=== PATIENT | female | born 1940 ===

== ENCOUNTER 2023-03-24 15:06 | Inpatient (IN) | payer MEDICARE, SELFPAY ==
[2023-03-24] VITALS (7 sets, daily range): BP systolic 95–100; BP diastolic 53–56; PULSE 77–98; RESP 16–20; TEMP 36.3–36.5; O2SAT 90–93; BMI 28.0
--- NOTE | ~2023-03-24 | XR_ITS ---
EXAMINATION: XR chest 1V portable DATE: 03/27/2023 10:10 INDICATION: Hypoxia. TECHNIQUE: A single frontal view of the chest was obtained. COMPARISON: None. FINDINGS: The patient is rotated to her left. There are airspace opacities in the lower lung zones, l eft worse than right. A calcified left lung nodule is consistent with old granulomatous disease. No p leural effusion or pneumothorax. The heart size is normal. IMPRESSION: 1. Airspace opacities in the lower lung zones, left worse than right, consistent with atelectasis fabienne jaime pneumonia. Reviewed, dictated and finalized at location A. IMPRESSION: 1. Airspace opacities in the lower lung zones, left worse than right, consisten t with atelectasis versus pneumonia.
--- NOTE | ~2023-03-24 | US_ITS ---
EXAMINATION: US renal BI DATE: 03/27/2023 11:22 INDICATION: Acute kidney injury. TECHNIQUE: Multiple ultrasound grayscale images of the kidneys were obtained. COMPARISON: None. FINDINGS: The right kidney measures 10.1 x 4.9 x 5.0 cm. The left kidney measures 10.7 x 5.1 x 4.4 cm. The kidn eys demonstrate normal parenchymal echogenicity. There is mild right hydronephrosis. The bladder is d istended. IMPRESSION: 1. Mild right hydronephrosis. 2. Distended bladder. Reviewed, dictated and finalized at location A.
--- NOTE | ~2023-03-24 | US_ITS ---
Procedure: Duplex Doppler examination of the bilateral carotids. Indication: Neurologic symptoms, left lower extremity weakness Technique: Real time, color-flow and pulse wave Doppler examination of the bilateral carotids was performed. Findings: Soni scale ultrasonography of the right neck demonstrated small plaque at the proximal right internal carotid artery. There was demonstration of normal color-flow and Doppler waveforms within the right common, internal and external carotid arteries. The peak systolic velocities in the right common, int ernal and external carotid arteries were demonstrated to be 94 cm/sec, 100 cm/sec and 127 cm/sec resp ectively. The right ICA/CCA ratio was 1.1.The proximal right internal carotid artery demonstrates 0% stenosis relative to the normal distal artery lumen diameter. Soni scale sonography of the left neck demonstrated small to moderate plaques at the proximal left co mmon carotid artery.. There was demonstration of normal color-flow and wave forms within the left com mon, internal and external carotid arteries. The peak systolic velocities in the left common, interna l and external carotid arteries were demonstrated to be 126cm/sec, 93 cm/sec and 145 cm/sec respectiv anusha. The left ICA/CCA ratio was 0.9. The proximal left internal carotid artery demonstrates 0% stenos is relative to the normal distal artery lumen diameter. There was antegrade flow demonstrated in the bilateral vertebral arteries. Impression: No hemodynamically significant stenosis of the bilateral internal carotid arteries. Antegrade flow in the bilateral vertebral arteries. Note: The methodology used is an indirect measurement validated against a direct method (such as the NASCET criteria) that compares diameters at the stenosis to the distal ICA. Reviewed, dictated and finalized at location . Impression: No hemodynamically significant stenosis of the bilateral internal carotid arter ies. Antegrade flow in the bilateral vertebral arteries. Note: The methodology used is an indirect measurement validated against a direct meth od (such as the NASCET criteria) that compares diameters at the stenosis to the distal ICA.
--- NOTE | 2023-03-24 15:05 | PM.IMHP ---
H&P: HPI History of Present Illness Date/Time: 03/24/23 15:00 Chief Complaint: Non ST-elevation myocardial infarction. Narrative: This is a very pleasant 82-year-old female with hypertension, COPD, and GERD who is being directly admitted to the IMU from the emergency department at [facility] in [place] for further treatment and evaluation after she was found to have evidence of a non ST-elevation myocardial infarction. She presented to their facility last evening with a chief complaint of left lower extremity weakness. She was walking around the house when suddenly her left leg ?felt like it was going to collapse? so she walked over to the couch to sit down. She was unable to lift that leg up onto the couch and after speaking with her son she decided to call EMS as she was concerned for stroke. EMS had to assist her to the cot and they had to lift up her left leg as she was unable to do so. By the time she got to the emergency department her symptoms have resolved and her NIH stroke scale was 0. Brain CT done at that time showed no acute findings. Multiple labs were obtained including CBC, BMP, and troponins. Incidentally her troponin level came back moderately elevated and with further questioning she did mention that she had a mild aching discomfort in the left anterior chest yesterday however that was very brief. The discomfort did not radiate and she had no associated symptoms. Transfer was initiated to [place] today as she was still waiting on a bed at [facility]. At the outside facility she was started on heparin drip for presumed non STEMI and she was also given 1 dose of antibiotics for possible urinary tract infection (urine was nitrate negative but showed 1+ leukocyte esterase). At the time my evaluation she feels a bit more short of breath than baseline but she believes that is due to the fact that she was not given her inhalers while at the outside facility. She has a chronic cough which is unchanged. She has not had any other neurologic symptoms and her left leg is back to normal. She has not had any recurrent chest discomfort. She also denies fever, chills, sweats, cold and flu symptoms, pleuritic pain, palpitations, nausea, vomiting, diarrhea, dysuria, and any other urinary symptoms. Review of Systems Review of Systems: Twelve systems were reviewed and are negative except for as per HPI. [facility] Past Medical History Medical History (Updated 03/24/23 @ 23:28 by Larissa Vargas PA-C) Chronic obstructive pulmonary disease Fracture of greater trochanter of left femur (11/2019) Gastroesophageal reflux disease Hypertension Macular degeneration Surgical History Surgical History (Updated 03/24/23 @ 23:21 by Larissa Vargas PA-C) History of eye surgery For retinal detachment. History of tubal ligation History of uterine suspension procedure Family History Family History Father Myocardial infarction Sibling Myocardial infarction Mother Diabetes mellitus Cerebrovascular accident Sibling Diabetes mellitus Grandparent Cancer Social History Social History (Updated 03/24/23 @ 23:22 by Larissa Vargas PA-C) Social History: Surrogate medical decision maker: Blu Kellogg, son. Code status: Full code. Smoking packs per day: 1 Smoking cigarettes per day: 20.0 Years smoked: 20 Smoking pack-years: 20.00 Smoking status: Former smoker Smoking end date: 10/21/17 Alcohol intake: never Substance use: never Lack of Transportation: No Lack of Food: Never True Current Housing: I Have Housing Concerned About Future Housing: No Difficulty Paying Gas/Electric Bills: No Difficulty Paying for Meds: No Currently Unemployed: No Education: Don't Know Difficulty w/ Childcare or Family Care: No Additional living arrangements comments: . She lives in [place]. Her son Conner lives with her. Spiritual ca
--- NOTE | 2023-03-24 15:07 | ECG_ITS ---
Measurements Intervals [place] Rate: 88 P: 65 WV: 170 QRS: -24 QRSD: 76 T: 26 QT: 302 QTc: 367 Interpretive Statements SINUS RHYTHM BORDERLINE LEFT AXIS DEVIATION [QRS AXIS < -20] NONSPECIFIC T-WAVE ABNORMALITY CAN NOT RULE OUT INFERIOR INFARCTION ABNORMAL ECG Electronically Signed On 03-25-2023 10:17:51 CDT by Gildardo Adler M.D.
--- NOTE | 2023-03-24 15:14 | PM.CNCAR ---
Assessment and Plan Assessment and plan (1) SOB (shortness of breath) on exertion: Code(s): R06.02 - Shortness of breath Status: Acute Assessment and Plan: With wheezes, this could be COPD exac or ACS. Obtain troponin, EKG. Obtain echo in AM. Obtain Lipid panel; she states she got sick from cholesterol medication and it was discontinued in past. Keep NPO in case needs to have left heart cath. On heparin drip, aspirin 81 mg daily. (2) Elevated troponin: Code(s): R77.8 - Other specified abnormalities of plasma proteins Status: Acute Assessment and Plan: At [facility] on their scale, Troponin over 4,000, then over 3,000, then over 2,000, trending down but elevated. (3) Chronic obstructive pulmonary disease: Code(s): J44.9 - Chronic obstructive pulmonary disease, unspecified Status: Acute Assessment and Plan: Inhalers as per hospitalist. (4) Hypertension: Code(s): I10 - Essential (primary) hypertension Status: Acute Assessment and Plan: On Lisinopril. Monitor. History of Present Illness History of Present Illness Consult date/time: 03/24/23 15:14 Reason For Visit: NSTEMI Narrative: 82 yr old woman transferred from [facility] in [place] after found to have NSTEMI. She has a history of hypertension, COPD, GERD, smoking history. Reports that yesterday she had generalized weakness and especially left leg weakness. Her son helped her get into bed. Due to weakness they called ambulance and was brought to [facility]. It was there that she complained of sob. Normally she can walk with her cane around her house without any problems. She had a history of left leg fracture that healed without surgery. Denies chest pain, orthopnea, PND, edema, dizziness, palpitations. At [place] her troponin was found to be elevated but trending down on their scale over 4,000, then over 3,000 then over 2,000. CT chest showed pulm nodule. EKG without acute ST changes. She was started on Heparin drip. Review of Systems Review of Systems: All systems reviewed & are unremarkable except as noted in HPI and below Cardiovascular: Cardiovascular: Reports as per HPI, Denies chest pain, Denies irregular heart rhythm, Denies leg edema and Denies lightheadedness Respiratory: Respiratory: Reports dyspnea and Reports wheezing Gastrointestinal: Gastrointestinal: Reports as per HPI and Denies abdominal pain Genitourinary: Genitourinary: Reports as per HPI and Denies dysuria Musculoskeletal: Musculoskeletal: Reports as per HPI and Reports muscle weakness Neurologic: Reports as per HPI, Denies dizziness and Denies syncope [facility] Past Medical History Medical History (Updated 03/24/23 @ 15:21 by Isael Bhakta DO) Chronic obstructive pulmonary disease Fracture of greater trochanter of left femur (11/2019) Gastroesophageal reflux disease Hypertension Family History Family History Other Diabetes mellitus Social History Social History (Updated 03/24/23 @ 15:12 by Larissa Vargas PA-C) Social History: Surrogate medical decision maker: Blu Kellogg, son. Code status: Full code. Smoking status: Former smoker Smoking end date: 10/21/17 Alcohol intake: never Meds Home Medications and Allergies Home Medications Medication Instructions Recorded Confirmed Type acetaminophen 500 mg tablet 500 - 1,000 mg PO Q6H PRN Pain 03/24/23 03/24/23 History chlorthalidone 25 mg tablet 25 mg PO HS 03/24/23 03/24/23 History fluticasone 250 mcg-salmeterol 50 1 inh inhalation Q12H 03/24/23 03/24/23 History mcg/dose blistr powdr for inhalation (Wixela Inhub) lisinopril 40 mg tablet 40 mg PO HS 03/24/23 03/24/23 History loratadine 10 mg tablet 10 mg PO HS 03/24/23 03/24/23 History omeprazole 40 mg capsule,delayed 40 mg PO HS 03/24/23 03/24/23 History release Allergies
--- NOTE | 2023-03-24 15:36 | ADMGEN ---
This patient, Lily Kellogg, was admitted to IMU Room 203-01 on 03/24/23 at 1437. Patient/family oriented to hospital policies and general routines including ID bracelet, bed and alarms, visiting hours, pain management, procedures, bathroom and other care routines, personal items, smoking policy, room service/diet, and visiting hours. Information on how to activate the Rapid Response Team has been discussed. Patient/Family are encouraged to report perceived risks to care and to ask questions if they do not understand what they are told or what they should do.
[2023-03-24 17:15] LABS: Basophils Absolute Auto 0.1 K/mm3 (0.0-0.1); Basophils Percent Auto 0.5 % (0.2-1.2); Eosinophils Absolute Auto 0.1 K/mm3 (0-0.3); Eosinophils Percent Auto 0.5 % (0-4.4); Hematocrit 36.8 % (37.0-47.0); Hemoglobin 11.8 g/dL (12.0-15.0); Immature Granulocyte Absolute 0.03 K/mm3 (0.00-0.031); Immature Granulocyte Percent A 0.3 % (0-0.5); Lymphocytes Absolute Auto 2.22 K/mm3 (0.9-3.2); Lymphocytes Percent Auto 22.7 % (18.3-44.2); Mean Corpuscular HGB Conc 32.1 g/dl (32-36); Mean Corpuscular Hemoglobin 28.4 pg (26-34); Mean Corpuscular Volume 88.5 fl (80-100); Mean Platelet Volume 9.1 fl (7.4-10.4); Monocytes Absolute Auto 0.8 K/mm3 (0.1-0.6); Monocytes Percent Auto 8.6 % (2.6-8.5); Neutrophils Absolute Auto 6.6 K/mm3 (1.3-6.7); Neutrophils Percent Auto 67.4 % (45.5-73.1); Platelet Count Result 329 k/mm3 (150-375); Red Blood Count 4.16 M/mm3 (4.2-5.4); Red Cell Distribution Width 13.5 % (11.5-14.5); White Blood Count 9.8 K/mm3 (4.5-10.0)
[2023-03-24 17:25] LABS: Prothrombin Time 13.3 Seconds (11.1-14.7)
[2023-03-24 17:26] LABS: Partial Thromboplastin Time 49.2 SECONDS (22.3-36.8)
[2023-03-24] MEDS: HEPARIN SOD/D5W 100 UNITS/ML 25,000 UNITS/250 ML BAG 11 UNITS IV CONT (17:35)
[2023-03-24] MEDS: HEPARIN SODIUM 5,000 UNITS/ML VIAL 4000 UNITS IV PUSH (17:37)
[2023-03-24] MEDS: LACTATED RINGERS 1,000 ML 100 ML IV CONT (17:38)
[2023-03-24] MEDS: LORATADINE 10 MG TABLET PO (22:40)
[2023-03-25] VITALS (35 sets, daily range): BP systolic 95–125; BP diastolic 46–92; PULSE 69–117; RESP 14–22; TEMP 36.2–36.4; O2SAT 91–98
[2023-03-25 00:06] LABS: Partial Thromboplastin Time 157.3 SECONDS (22.3-36.8)
[2023-03-25] MEDS: methylPREDNISolone SOD SUCC 125 MG VIAL 80 MG IV PUSH (00:29)
--- NOTE | 2023-03-25 00:43 | ECHO_ITS ---
Patient Info Name: Lily Kellogg Age: 82 years : 1940 Gender: Female Ht: 65 in Wt: 203 lbs BSA: 2.09 m2 HR: 69 bpm BP: 105 / 52 mmHg Heart Rhythm: Sinus Rhythm Technical Quality: Fair Exam Date: 03/25/2023 10:48 AM Exam Location: [facility] Pulmonary Patient Status: Inpatient Admit Date: 03/24/2023 Staff Ordering Physician: Larissa Vargas PA-C Hem Marker: Barbara Rivas RDCS Attending Provider: Demetrio Payton MD Referring Physician: Alicia GONZALEZ; Exam Type: CA echo doppler w bubble study Study Info Indications - NSTEMI, COPD, Cllubbing of finger Complete two-dimentional, color flow and Doppler transthoracic echocardiogram is performed with agitated saline and with contrast to opacify the left ventricle and to improve the delineation of the left ventricle endocardial borders. Contrast/Agitated Saline Contrast/Ag. Saline: Agitated Saline Amount: 20.00 ml Administered By: Imani Enriquez RDCS Existing IV Access: Yes IV Access Condition: patent with no signs of infiltration Contrast/Ag. Saline: Definity Amount: 3.00 ml Administered By: Barbara Rivas RDCS Existing IV Access: Yes IV Access Condition: patent with no signs of infiltration Summary 1. Left ventricular chamber dimension is moderately enlarged. 2. Definity contrast administered improved wall motion interpretation. 3. Left ventricular systolic function is severely reduced, estimated at 20-25%. 4. Basal LV segments have normal contractility while mid to apical segments are severely hypokinetic, suggestive of Takotsubo cardiomyopathy. 5. The left ventricular diastolic function is abnormal. 6. E/e' 36 is significantly elevated. 7. There is mild aortic valve regurgitation. 8. There is mild tricuspid valve regurgitation. 9. No pulmonary hypertension, estimated pulmonary arterial systolic pressure is 39 mmHg. Left Ventricle Basal LV segments have normal contractility while mid to apical segments are severely hypokinetic, suggestive of Takotsubo cardiomyopathy. Definity contrast administered improved wall motion interpretation. E/e' 36 is significantly elevated. Left ventricular chamber dimension is moderately enlarged. Left ventricular systolic function is severely reduced, estimated at 20-25%. The left ventricular diastolic function is abnormal. Right Ventricle Right ventricular chamber dimension is normal. Right ventricular systolic function is normal. Left Atria Left atrial chamber dimension is normal. Right Atria Right atrial chamber dimension is normal. Aortic Valve The aortic valve is trileaflet. There is no aortic valve stenosis. There is mild aortic valve regurgitation. Pulmonic Valve There is no pulmonic regurgitation. Mitral Valve There is no mitral valve stenosis. There is no mitral valve regurgitation. Tricuspid Valve There is mild tricuspid valve regurgitation. No pulmonary hypertension, estimated pulmonary arterial systolic pressure is 39 mmHg. Pericardium/Pleural There is no pericardial effusion. Inferior Vena Cava Normal inferior vena cava with >50% collapse upon inspiration consistent with normal right atrial pressure, 5 mmHg. Aorta The aortic root size at the sinus of Valsalva is normal. Left Ventricular Outflow Tract Name Value Normal LVOT 2D ------
[2023-03-25] MEDS: ALBUTEROL SULFATE NEB 2.5 MG/3 ML INH INHALATION ×4 (02:30→20:45)
[2023-03-25] MEDS: IPRATROPIUM BR 0.02% INH SOLN 0.5 MG/2.5 ML VIAL INHALATION ×4 (02:31→20:45)
[2023-03-25 07:43] LABS: Basophils Percent Auto 0.3 % (0.2-1.2); Hematocrit 34.7 % (37.0-47.0); Hemoglobin 11.1 g/dL (12.0-15.0); Immature Granulocyte Absolute 0.04 K/mm3 (0.00-0.031); Immature Granulocyte Percent A 0.5 % (0-0.5); Lymphocytes Absolute Auto 0.92 K/mm3 (0.9-3.2); Lymphocytes Percent Auto 11.6 % (18.3-44.2); Mean Corpuscular Hemoglobin 28.5 pg (26-34); Mean Platelet Volume 9.3 fl (7.4-10.4); Monocytes Absolute Auto 0.1 K/mm3 (0.1-0.6); Monocytes Percent Auto 1.1 % (2.6-8.5); Neutrophils Absolute Auto 6.8 K/mm3 (1.3-6.7); Neutrophils Percent Auto 86.5 % (45.5-73.1); Platelet Count Result 295 k/mm3 (150-375); Red Cell Distribution Width 13.7 % (11.5-14.5); White Blood Count 7.9 K/mm3 (4.5-10.0)
[2023-03-25 07:54] LABS: Partial Thromboplastin Time 79.8 SECONDS (22.3-36.8)
--- NOTE | 2023-03-25 07:55 | PM.PNCARD ---
Progress Note: A&P Assessment and Plan (1) SOB (shortness of breath) on exertion: Code(s): R06.02 - Shortness of breath Status: Acute Assessment and Plan: With wheezes, this could be COPD exac or ACS. Obtain echo. Obtain Lipid panel; she states she got sick from cholesterol medication and it was discontinued in past. Keep NPO for left heart cath. On heparin drip, aspirin 81 mg daily. Consult [facility] for LHC. (2) Elevated troponin: Code(s): R77.8 - Other specified abnormalities of plasma proteins Status: Acute Assessment and Plan: At [facility] on their scale, Troponin over 4,000, then over 3,000, then over 2,000, trending down but elevated. Here is peaked at 2.9. Obtain CMP, CBC. (3) Chronic obstructive pulmonary disease: Code(s): J44.9 - Chronic obstructive pulmonary disease, unspecified Status: Acute Assessment and Plan: Inhalers as per hospitalist. (4) Hypertension: Code(s): I10 - Essential (primary) hypertension Status: Acute Assessment and Plan: On Lisinopril. Monitor. Subjective Date/time seen: 03/25/23 07:55 Interval history: Reports sob and some wheezes. No chest pain. Exam Const: General: cooperative, healthy appearing and comfortable Orientation/consciousness: oriented to person, oriented to place and oriented to time Resp: Auscultation: no crackles, no rales, no rhonchi and wheezes expiratory wheezes and throughout Cardio: Rate: regular rate Rhythm: regular rhythm Heart sounds: no murmurs Peripheral pulses: dorsalis pedis present Neuro: General: oriented to person, oriented to place and oriented to time Extrem: Right lower extremity: no edema Left lower extremity: no edema Objective Data Vital Signs Vital Signs: Vital Signs - 24 hr 03/24/23 14:40 03/24/23 16:00 03/24/23 14:40 Temperature 97.3 F L Pulse Rate 83 Respiratory Rate 20 Blood Pressure 95/53 L Pulse Oximetry 93 Oxygen Delivery Room Air Room Air Oxygen Flow Rate 03/24/23 16:00 03/24/23 14:53 03/24/23 18:00 Temperature Pulse Rate 98 87 83 Respiratory Rate Blood Pressure Pulse Oximetry Oxygen Delivery Oxygen Flow Rate 03/24/23 19:38 03/24/23 20:00 06/04/23 20:00 Temperature 97.7 F Pulse Rate 82 86 Respiratory Rate 16 Blood Pressure 100/56 L Pulse Oximetry 92 90 Oxygen Delivery Nasal Cannula Oxygen Flow Rate 1 03/24/23 22:00 03/25/23 00:00 03/25/23 00:00 Temperature 97.5 F L Pulse Rate 77 91 Respiratory Rate 18 Blood Pressure 121/81 Pulse Oximetry 95 91 Oxygen Delivery Room Air Oxygen Flow Rate 03/25/23 00:00 03/25/23 02:00 03/25/23 02:31 Temperature Pulse Rate 79 72 77 Respiratory Rate 20 Blood Pressure Pulse Oximetry Oxygen Delivery Oxygen Flow Rate 03/25/23 02:43 03/25/23 03:05 03/25/23 04:00 Temperature Pulse Rate 79 71 Respiratory Rate 20 Blood Pressure Pulse Oximetry 97 Oxygen Delivery Nasal Cannula Oxygen Flow Rate 2 03/25/23 04:00 03/25/23 06:00 Temperature 97.3 F L Pulse Rate 95 69 Respiratory Rate 18 Blood Pressure 105/52 L Pulse Oximetry 98 Oxygen Delivery Oxygen Flow Rate Intake/Output Intake/Output: Intake & Output 03/22/23 03/23/23 03/24/23 03/25/23 23:59 23:59 23:59 23:59 Intake Total 660 950 Output Total 1210 800 Balance -550 150 Meds/Results Medications: Active Medications Generic Name Dose Route Start Last Admin Trade Name Freq PRN Reason Stop Dose Admin Acetaminophen 650 mg 03/24/23 15:06 Acetaminophen 325 Mg Tablet PO Q4H PRN Mild Pain (1-3) or Fever Albuterol 2.5 mg 03/24/23 21:33 Albuterol Sulfate Neb 2.5 Mg/3 Ml Inh INHALATION Q6H PRN Wheezing Albuterol 2.5 mg 03/25/23 02:00 03/25/23 02:30 Albuterol Sulfate Neb 2.5 Mg/3 Ml Inh INHALATION 2.5 mg Q6HRT NALINI Administration Aspirin 81 mg 03/25/23
[2023-03-25] MEDS: FLUTICASONE/SALMETEROL 115-21 MCG INHALER 1 PUFF 2 PUFF INHALATION ×2 (08:00→20:45)
[2023-03-25 08:04] LABS: Alanine Aminotransferase 21 U/L (6-35); Albumin Level 4.2 g/dL (3.5-5.1); Alkaline Phosphatase 94 U/L (38-126); Anion Gap 7 mmol/L (8-16); Aspartate Amino Transferase 41 U/L (14-36); Bilirubin,Total 0.4 mg/dL (0.2-1.3); Blood Urea Nitrogen 17 mg/dL (7-17); Calcium 8.5 mg/dL (8.4-10.2); Carbon Dioxide 25 mmol/L (22-30); Chloride 102 mmol/L (98-107); Cholesterol 243 mg/dL (0-200); Estimated CRCL calculation 41 ml/min; Estimated Glomerular Filt Rate 53; Glucose 168 mg/dL (65-110); HDL Direct 57 mg/dL; Magnesium 1.8 mg/dL (1.6-2.3); Potassium 4.5 mmol/L (3.4-5.0); Sodium 134 mmol/L (137-145); Triglycerides 232 mg/dL (<150)
[2023-03-25 08:14] LABS: LDL Cholesterol Direct 119 mg/dL
--- NOTE | 2023-03-25 08:24 | PM.IMPN ---
Progress Note: A&P Assessment and Plan (1) Non-ST elevation myocardial infarction (NSTEMI): Code(s): I21.4 - Non-ST elevation (NSTEMI) myocardial infarction Status: Acute Assessment and Plan: Continue heparin drip, appreciate cardiology consultation (2) COPD exacerbation: Code(s): J44.1 - Chronic obstructive pulmonary disease with (acute) exacerbation Status: Acute Assessment and Plan: Solumedrol x 1, then prednisone 40 mg daily initiated 03/25 for 5 days total of steroids planned, cont nebs (3) Hypertension: Code(s): I10 - Essential (primary) hypertension Status: Acute Assessment and Plan: Blood pressures reviewed 03/25 (4) Left leg weakness: Code(s): R29.898 - Other symptoms and signs involving the musculoskeletal system Status: Acute (5) Right upper lobe pulmonary nodule: Code(s): R91.1 - Solitary pulmonary nodule Status: Acute Assessment and Plan: Follow up outpatient Plan DVT prophylaxis with SCDs GI prophylaxis not indicated Code status full code Subjective Date/time seen: 03/25/23 08:24 Interval history: 82-year-old female with history of hypertension, COPD, GERD is presenting with lower extremity weakness and currently being treated for an NSTEMI. No overnight events noted. No chest pain or shortness of breath. No nausea, vomiting or diarrhea. No fevers or chills. Review of Systems Review of Systems: 12 point review of systems was assessed and was negative except as noted in the HPI Exam Narrative: General: No acute distress, alert and oriented per baseline HEENT: Atraumatic, normocephalic, mucous membranes moist CV: Regular rate and rhythm, S1, S2 Lungs: Clear to auscultation bilaterally, no rales or crackles noted, no wheezes, good air entry Abdomen: Soft, nontender, nondistended Extremities: Normal to inspection Skin: No rashes noted, no lesions or wounds seen Psych: Euthymic, normal affect Objective Data Vital Signs Vital Signs: Vital Signs - 24 hr 03/24/23 14:40 03/24/23 16:00 03/24/23 14:40 Temperature 97.3 F L Pulse Rate 83 Respiratory Rate 20 Blood Pressure 95/53 L Pulse Oximetry 93 Oxygen Delivery Room Air Room Air Oxygen Flow Rate 03/24/23 16:00 03/24/23 14:53 03/24/23 18:00 Temperature Pulse Rate 98 87 83 Respiratory Rate Blood Pressure Pulse Oximetry Oxygen Delivery Oxygen Flow Rate 03/24/23 19:38 03/24/23 20:00 03/24/23 20:00 Temperature 97.7 F Pulse Rate 82 86 Respiratory Rate 16 Blood Pressure 100/56 L Pulse Oximetry 92 90 Oxygen Delivery Nasal Cannula Oxygen Flow Rate 1 03/24/23 22:00 03/25/23 00:00 03/25/23 00:00 Temperature 97.5 F L Pulse Rate 77 91 Respiratory Rate 18 Blood Pressure 121/81 Pulse Oximetry 95 91 Oxygen Delivery Room Air Oxygen Flow Rate 03/25/23 00:00 03/25/23 02:00 03/25/23 02:31 Temperature Pulse Rate 79 72 77 Respiratory Rate 20 Blood Pressure Pulse Oximetry Oxygen Delivery Oxygen Flow Rate 03/25/23 02:43 03/25/23 03:05 03/25/23 04:00 Temperature Pulse Rate 79 71 Respiratory Rate 20 Blood Pressure Pulse Oximetry 97 Oxygen Delivery Nasal Cannula Oxygen Flow Rate 2 03/25/23 04:00 03/25/23 06:00 03/25/23 08:01 Temperature 97.3 F L Pulse Rate 95 69 Respiratory Rate 18 Blood Pressure 105/52 L Pulse Oximetry 98 94 Oxygen Delivery Room Air Oxygen Flow Rate 03/25/23 08:01 Temperature Pulse Rate 80 Respiratory Rate 20 Blood Pressure Pulse Oximetry Oxygen Delivery Oxygen Flow Rate Intake/Output Intake/Output: Intake & Output 03/22/23 03/23/23 03/24/23 03/25/23 23:59 23:59 23:59 23:59 Intake Total 660 950 Output Total 1210 800 Balance -550 150 Meds/Results Medications: Active Medications Generic Name Dose Route Start Last Admin
[2023-03-25] MEDS: predniSONE 20 MG TABLET 40 MG PO (08:39)
[2023-03-25] MEDS: PANTOPRAZOLE 40 MG TABLET PO ×2 (08:40→17:52)
[2023-03-25] MEDS: ASPIRIN 81 MG ENTERIC TABLET PO (08:40)
--- NOTE | 2023-03-25 09:11 | WPDMODSED ---
Moderate Sedation Note-Pt Data Patient Data Diagnosis: Elevated troponin Present Complaint: generalized weakness Procedure to be performed/Plan: left heart catheterization Allergies Allergy/AdvReac Type Severity Reaction Status Date / Time atorvastatin Allergy Unknown Unknown Verified 03/24/23 15:29 codeine Allergy Unknown unknown Verified 11/30/19 13:12 amlodipine AdvReac Unknown Nausea and Verified 03/24/23 16:49 Vomiting,lightheaded Home Medications Medication Instructions Recorded Confirmed Type acetaminophen 500 mg tablet 500 - 1,000 mg PO Q6H PRN Pain 03/24/23 03/24/23 History albuterol sulfate 2.5 mg/3 mL 2.5 mg inhalation Q6H PRN Wheezing 03/24/23 03/24/23 History (0.083 %) solution for nebulization chlorthalidone 25 mg tablet 25 mg PO HS 03/24/23 03/24/23 History fluticasone 250 mcg-salmeterol 50 1 inh inhalation Q12H 03/24/23 03/24/23 History mcg/dose blistr powdr for inhalation (Wixela Inhub) lisinopril 40 mg tablet 40 mg PO HS 03/24/23 03/24/23 History loratadine 10 mg tablet 10 mg PO HS 03/24/23 03/24/23 History omeprazole 40 mg capsule,delayed 40 mg PO HS 03/24/23 03/24/23 History release Current Medications: Active Medications Acetaminophen (Acetaminophen 325 Mg Tablet) 650 mg PO Q4H PRN PRN Reason: Mild Pain (1-3) or Fever Albuterol (Albuterol Sulfate Neb 2.5 Mg/3 Ml Inh) 2.5 mg INHALATION Q6H PRN PRN Reason: Wheezing Albuterol (Albuterol Sulfate Neb 2.5 Mg/3 Ml Inh) 2.5 mg INHALATION Q6HRT [facility] Last Admin: 03/25/23 08:00 Dose: 2.5 mg Aspirin (Aspirin 81 Mg Enteric Tablet) 81 mg PO QAM [facility] Last Admin: 03/25/23 08:40 Dose: 81 mg Heparin Sodium (Porcine) (Heparin Sodium 5,000 Units/Ml Vial) 2,500 units IV PUSH PRN PRN PRN Reason: aPTT 55 - 70 seconds Heparin Sodium (Porcine) (Heparin Sodium 5,000 Units/Ml Vial) 4,000 units IV PUSH PRN PRN PRN Reason: aPTT less than 55 seconds Last Admin: 03/24/23 17:37 Dose: 4,000 units Heparin Sodium/Dextrose (Heparin Sodium/D5w 100 Units/Ml) 25,000 units in 250 mls @ 9 mls/hr IV CONT .Q24H [facility]; Protocol Last Titration: 03/25/23 08:13 Dose: 900 units/hr, 9 mls/hr Lactated Ringer's (Lr - Lactated Ringers Iv) 1,000 mls @ 100 mls/hr IV CONT .Q10H ONE Stop: 03/25/23 09:30 Last Admin: 03/25/23 02:57 Dose: Not Given Ipratropium Fischer (Ipratropium Br 0.02% Inh Soln 0.5 Mg/2.5 Ml Vial) 0.5 mg INHALATION Q6HRT [facility] Last Admin: 03/25/23 08:00 Dose: 0.5 mg Loratadine (Loratadine 10 Mg Tablet) 10 mg PO HS [facility] Last Admin: 03/24/23 22:40 Dose: 10 mg Pantoprazole Sodium (Pantoprazole 40 Mg Tablet) 40 mg PO BID [facility] Last Admin: 03/25/23 08:40 Dose: 40 mg Perflutren Lipid Microsphere (Perflutren Lipid Microspheres 1.5 Ml Vial Diluted To 10 Ml Total Volume) 0 ml IV PUSH ONCE PRN; Protocol PRN Reason: adequate visualization Stop: 03/26/23 15:08 Perflutren Lipid Microsphere (Perflutren Lipid Microspheres 1.5 Ml Vial Diluted To 10 Ml Total Volume) 0 ml IV PUSH ONCE PRN; Protocol PRN Reason: adequate visualization Stop: 03/27/23 00:43 Prednisone (Prednisone 20 Mg Tablet) 40 mg PO DAILY@0800 [facility] Stop: 03/29/23 07:59 Last Admin: 03/25/23 08:39 Dose: 40 mg Fluticasone/Salmeterol (Fluticasone/Salmeterol 115-21 Mcg Inhaler 1 Puff) 2 puff INHALATION Q12HRT [facility] Last Admin: 03/25/23 08:00 Dose: 2 puff Sedation/Anesthesia: No previous sedation/anesthesia problems (including family history). [facility] Past Medical History Medical History (Updated 03/24/23 @ 23:28 by Larissa Vargas PA-C) Chronic obstructive pulmonary disease Fracture of greater trochanter of left femur (11/2019) Gastroesophageal reflux disease Hypertension Macular degeneration Surgical History Surgical History (Updated 03/24/23 @ 23:21 by Larissa Vargas PA-C) History of eye surgery For retinal detachment. History of tubal ligation History of uterine suspension procedure Family History Family History (Reviewed
[2023-03-25] MEDS: PERFLUTREN LIPID MICROSPHERES 1.5 ML VIAL DILUTED TO 10 ML TOTAL VOLUME IV PUSH (11:15)
[2023-03-25 14:21] LABS: Partial Thromboplastin Time 68.2 SECONDS (22.3-36.8)
[2023-03-25 15:15] LABS: Activated Clotting Time 101 SEC (74-137)
--- NOTE | 2023-03-25 15:16 | WPDCARDPROC ---
Cardiac Cath Procedure Note Date of procedure:: 03/25/23 Performing physician:: Demetrio Hebert MD Indication:: acute coronary syndrome Brief clinical history:: this is an 82-year-old woman who entered the hospital over the weekend with an episode of weakness. She is not reporting any sort of chest pain. She did have a moderate troponin rise. Echocardiogram has been done demonstrating findings compatible with or suggestive of takotsubo cardiomyopathy. Procedure Procedure performed:: Coronary angiography left ventriculography Sedation/Medication given:: Versed 2 mill case start time 2:48 p.m. case end time 3:08 p.m. sedation provided by Farida Sosa RN, trained observer Access site:: right femoral artery Estimated blood loss:: 20 cc Procedure note:: patient was brought to the cardiac catheterization lab in the postabsorptive state where the right femoral triangle was prepared and draped in the usual fashion. Anesthesia was provided with 1% lidocaine infiltrated locally. Using the modified Seldinger technique a 5 Iranian sheath was placed into the right femoral artery after this left heart catheterization took place. I used a 5 Iranian FL4 catheter to engage inject the left coronary artery in multiple projections following this a 5 Iranian JR4 catheter was used to engage and inject the right coronary artery. The left ventricle was then studied using a 5 Iranian angled pigtail catheter measuring hemodynamics and injecting left ventriculography in the 30 degree RYAN projection. Following this the case was terminated the patient was taken to the holding area for manual sheath removal. Procedure was uncomplicated she left the laboratory cureman with no evidence of groin hematoma. ACT was checked at the conclusion of the case and was 101 Findings:: hemodynamics: Central aortic pressure is 22 56 left ventricle 122/10 end-diastolic pressure 36. No gradient across the aortic valve upon pullback. Left ventricle: The LV is mildly enlarged the entire apical 1/3 of the LV is akinetic with apical dyskinesis. There is no evidence of clot. Global ejection fraction appears to be about 25-30%. The left main coronary artery is moderately calcified but is nicely patent the LAD is heavily calcified proximally of moderate caliber extends down to and around the apex. The proximal LAD has a high-grade 95-99% stenosis which also involves 95-99% stenosis of the origin of the moderate-sized 1st diagonal branch. There was PJ 3 flow in the LAD and in the diagonal. The bifurcation area has bulky nodular calcification seen in the lumen of the LAD itself. The circumflex is a moderate caliber artery which is mildly calcified the circumflex is marginal branches are free of significant disease. Right coronary artery is large in caliber and dominant to the posterior circulation the RCA has mild atherosclerosis proximally 20-30% stenosis in the 2nd portion where it is rather large and caliber. No flow-limiting disease appears to be identified Conclusion:: 1. severe single-vessel coronary disease with high-grade stenosis of the proximal LAD also involving high-grade stenosis of the 1st diagonal branch in region of the LAD and diagonal which are heavily calcified as well. 2. No significant circumflex or right coronary lesion 3. large area of left ventricular akinesia similar to what was described on her echocardiogram. As the patient does have very high-grade proximal LAD disease 1 must presume this is ischemically mediated rather than an example of takotsubo. 4. Will discuss with referring safety teacher revascularization strategy as this proximal heavily calcified LAD bifurcation lesion would likely require interventional equipment such as shockwave, atherectomy or possibly laser which are not available in our laboratory Demetrio Hebert MD [facility]
[2023-03-25] MEDS: SODIUM CHLORIDE 0.9% IV 1,000 ML 125 ML IV CONT (17:50)
[2023-03-25] MEDS: FUROSEMIDE 20 MG TABLET PO (17:52)
[2023-03-25] MEDS: HEPARIN SODIUM 5,000 UNITS/ML VIAL 2500 UNITS IV PUSH (17:54)
--- NOTE | 2023-03-25 18:11 | P.PNCROSS_ITS ---
Event Note Event Note Event Note: contated [facility] emergency department hospitalist for transfer. accepted by Dr. Michelle for transf er. dr. Dallas to consult for intervention. on heparin gtt. awaiting bed placement
--- NOTE | 2023-03-25 18:11 | PM.EVENT ---
Event Note Event Note Event Note: [facility] hospitalist for transfer. accepted by Dr. Michelle for transfer. dr. Dallas to consult for intervention. on heparin gtt. awaiting bed placement
[2023-03-25] MEDS: METOPROLOL TARTRATE 12.5 MG TABLET PO (21:11)
[2023-03-25] MEDS: LORATADINE 10 MG TABLET PO (21:11)
[2023-03-25] MEDS: ACETAMINOPHEN 325 MG TABLET 650 MG PO (21:28)
[2023-03-25] MEDS: HEPARIN SOD/D5W 100 UNITS/ML 25,000 UNITS/250 ML BAG 10 UNITS IV CONT (23:05)
[2023-03-26] VITALS (24 sets, daily range): BP systolic 111–137; BP diastolic 53–96; PULSE 72–110; RESP 18–22; TEMP 36.4–36.7; O2SAT 91–98
[2023-03-26 00:46] LABS: Partial Thromboplastin Time 113.8 SECONDS (22.3-36.8)
[2023-03-26 07:26] LABS: Hematocrit 30.6 % (37.0-47.0); Hemoglobin 9.6 g/dL (12.0-15.0); Mean Corpuscular HGB Conc 31.4 g/dl (32-36); Mean Corpuscular Hemoglobin 27.7 pg (26-34); Mean Corpuscular Volume 88.4 fl (80-100); Mean Platelet Volume 9.6 fl (7.4-10.4); Platelet Count Result 280 k/mm3 (150-375); Red Blood Count 3.46 M/mm3 (4.2-5.4); Red Cell Distribution Width 13.7 % (11.5-14.5); White Blood Count 11.9 K/mm3 (4.5-10.0)
[2023-03-26 07:45] LABS: Alanine Aminotransferase 21 U/L (6-35); Albumin Level 3.7 g/dL (3.5-5.1); Alkaline Phosphatase 73 U/L (38-126); Anion Gap 6 mmol/L (8-16); Aspartate Amino Transferase 35 U/L (14-36); Bilirubin,Total 0.3 mg/dL (0.2-1.3); Blood Urea Nitrogen 20 mg/dL (7-17); Calcium 8.2 mg/dL (8.4-10.2); Carbon Dioxide 23 mmol/L (22-30); Chloride 105 mmol/L (98-107); Estimated CRCL calculation 35 ml/min; Estimated Glomerular Filt Rate 43; Glucose 121 mg/dL (65-110); Potassium 3.9 mmol/L (3.4-5.0); Sodium 134 mmol/L (137-145)
[2023-03-26 07:54] LABS: Partial Thromboplastin Time 80.9 SECONDS (22.3-36.8)
--- NOTE | 2023-03-26 07:57 | PM.PNCARD ---
Progress Note: A&P Assessment and Plan (1) SOB (shortness of breath) on exertion: Code(s): R06.02 - Shortness of breath Status: Acute Assessment and Plan: With wheezes, this could be COPD exac or ACS. 03/25/23 Echo: EF 20-25%, mod LVE, basal LV segments have normal contractility while mid to apical segments are severely hypokinetic, diastolic dysfunction (E/e' 26), mild MR/TR. Started Zetia 10 mg daily. She states she got sick from Atorvastatin and it was discontinued in past. 03/25/[address] Holguin: 95-99% prox LAD and 1st Diag stenosis that is heavily calcified, will require shockwave/laser atherectomy which we do not have at [place]. Spoke to Dr. Dallas who is accepting patient to be transferred to [facility] to perform procedure. Patient will need to be admitted under hospitalist. On heparin drip, aspirin 81 mg daily and Metoprolol 12.5 mg BID. (2) Elevated troponin: Code(s): R77.8 - Other specified abnormalities of plasma proteins Status: Acute Assessment and Plan: At [facility] on their scale, Troponin over 4,000, then over 3,000, then over 2,000, trending down but elevated. Here is peaked at 2.9. (3) Chronic obstructive pulmonary disease: Code(s): J44.9 - Chronic obstructive pulmonary disease, unspecified Status: Acute Assessment and Plan: Inhalers as per hospitalist. (4) Hypertension: Code(s): I10 - Essential (primary) hypertension Status: Acute Assessment and Plan: Lisinopril has been on hold due to low normal BP. Monitor. Subjective Date/time seen: 03/26/23 07:57 Interval history: Reports sob and some wheezes. No chest pain. Exam Const: General: cooperative, healthy appearing and comfortable Orientation/consciousness: oriented to person, oriented to place and oriented to time Resp: Auscultation: no crackles, no rales, no rhonchi and wheezes expiratory wheezes and throughout Cardio: Rate: regular rate Rhythm: regular rhythm Heart sounds: no murmurs Peripheral pulses: dorsalis pedis present Neuro: General: oriented to person, oriented to place and oriented to time Extrem: Right lower extremity: no edema Left lower extremity: no edema Objective Data Vital Signs Vital Signs: Vital Signs - 24 hr 03/25/23 08:01 03/25/23 08:01 03/25/23 08:22 Temperature Pulse Rate 80 91 Respiratory Rate 20 20 Blood Pressure Pulse Oximetry 94 Oxygen Delivery Room Air Oxygen Flow Rate 03/25/23 08:00 03/25/23 08:00 03/25/23 10:00 Temperature Pulse Rate 83 109 H Respiratory Rate Blood Pressure Pulse Oximetry 97 Oxygen Delivery Room Air Oxygen Flow Rate 03/25/23 08:00 03/25/23 12:00 03/25/23 12:00 Temperature 97.2 F L Pulse Rate 96 101 H Respiratory Rate 16 Blood Pressure 125/92 H Pulse Oximetry 96 94 Oxygen Delivery Room Air Oxygen Flow Rate 03/25/23 12:00 03/25/23 13:08 03/25/23 13:23 Temperature 97.4 F L Pulse Rate 101 H 96 100 Respiratory Rate 20 20 20 Blood Pressure 114/47 L Pulse Oximetry 96 Oxygen Delivery Oxygen Flow Rate 03/25/23 15:50 03/25/23 16:10 03/25/23 15:55 Temperature Pulse Rate 108 H 108 H 113 H Respiratory Rate 18 20 22 H Blood Pressure 113/67 116/68 121/77 Pulse Oximetry 94 97 94 Oxygen Delivery Room Air Room Air Room Air Oxygen Flow Rate 03/25/23 16:00 03/25/23 16:05 03/25/23 16:15 Temperature Pulse Rate 107 H 107 H 108 H Respiratory Rate 17 15 22 H Blood Pressure 121/78 97/63 L 109/66 Pulse Oximetry 97 97 97 Oxygen Delivery Room Air Room Air Room Air Oxygen Flow Rate 03/25/23 16:30 03/25/23 16:45 03/25/23 17:15 Temperature 97.4 F L Pulse Rate 104 H 106 H 104 H Respiratory Rate 14 16 14 Blood Pressure 109/64 114/66 113/64 Pulse Oximetry 96 95 94 Oxygen Delivery Room Air Room Air Room Air Oxygen Flow Rate 03/25/23 18:00 03/25/23 17:45 03/25/23 18:45 Temperature 97.5 F L 97.5
[2023-03-26] MEDS: ALBUTEROL SULFATE NEB 2.5 MG/3 ML INH INHALATION ×4 (08:33→21:02)
[2023-03-26] MEDS: IPRATROPIUM BR 0.02% INH SOLN 0.5 MG/2.5 ML VIAL INHALATION ×3 (08:33→21:02)
[2023-03-26] MEDS: FLUTICASONE/SALMETEROL 115-21 MCG INHALER 1 PUFF 2 PUFF INHALATION ×2 (08:36→21:02)
[2023-03-26] MEDS: EZETIMIBE 10 MG TABLET PO (08:45)
[2023-03-26] MEDS: METOPROLOL TARTRATE 12.5 MG TABLET PO ×2 (08:45→21:23)
[2023-03-26] MEDS: predniSONE 20 MG TABLET 40 MG PO (08:45)
[2023-03-26] MEDS: FUROSEMIDE 20 MG TABLET PO ×2 (08:46→17:13)
[2023-03-26] MEDS: PANTOPRAZOLE 40 MG TABLET PO ×2 (08:46→17:13)
[2023-03-26] MEDS: ASPIRIN 81 MG ENTERIC TABLET PO (08:46)
--- NOTE | 2023-03-26 11:19 | PM.IMPN ---
Progress Note: A&P Assessment and Plan (1) Non-ST elevation myocardial infarction (NSTEMI): Code(s): I21.4 - Non-ST elevation (NSTEMI) myocardial infarction Status: Acute Assessment and Plan: Continue heparin drip, appreciate cardiology consultation Transfer pending to [facility] per cardiology request (2) COPD exacerbation: Code(s): J44.1 - Chronic obstructive pulmonary disease with (acute) exacerbation Status: Acute Assessment and Plan: Solumedrol x 1, then prednisone 40 mg daily initiated 03/25 for 5 days total of steroids planned, cont nebs (3) Hypertension: Code(s): I10 - Essential (primary) hypertension Status: Acute Assessment and Plan: Blood pressures reviewed 03/26 (4) Left leg weakness: Code(s): R29.898 - Other symptoms and signs involving the musculoskeletal system Status: Acute (5) Right upper lobe pulmonary nodule: Code(s): R91.1 - Solitary pulmonary nodule Status: Acute Assessment and Plan: Follow up outpatient Plan DVT prophylaxis with SCDs GI prophylaxis not indicated Code status full code Subjective Date/time seen: 03/26/23 11:19 Interval history: 82-year-old female with history of hypertension, COPD, GERD is presenting with lower extremity weakness and currently being treated for an NSTEMI. No overnight events noted. No chest pain. No nausea, vomiting or diarrhea. No fevers or chills. C/o some SOB. Review of Systems Review of Systems: 12 point review of systems was assessed and was negative except as noted in the HPI Exam Narrative: General: No acute distress, alert and oriented per baseline HEENT: Atraumatic, normocephalic, mucous membranes moist CV: Regular rate and rhythm, S1, S2 Lungs: Clear to auscultation bilaterally, no rales or crackles noted, no wheezes, good air entry Abdomen: Soft, nontender, nondistended Extremities: Normal to inspection Skin: No rashes noted, no lesions or wounds seen Psych: Euthymic, normal affect Objective Data Vital Signs Vital Signs: Vital Signs - 24 hr 03/25/23 12:00 03/25/23 12:00 03/25/23 12:00 Temperature 97.4 F L Pulse Rate 101 H 101 H Respiratory Rate 20 Blood Pressure 114/47 L Pulse Oximetry 94 96 Oxygen Delivery Room Air Oxygen Flow Rate 03/25/23 13:08 03/25/23 13:23 03/25/23 15:50 Temperature Pulse Rate 96 100 108 H Respiratory Rate 20 20 18 Blood Pressure 113/67 Pulse Oximetry 94 Oxygen Delivery Room Air Oxygen Flow Rate 03/25/23 16:10 03/25/23 15:55 03/25/23 16:00 Temperature Pulse Rate 108 H 113 H 107 H Respiratory Rate 20 22 H 17 Blood Pressure 116/68 121/77 121/78 Pulse Oximetry 97 94 97 Oxygen Delivery Room Air Room Air Room Air Oxygen Flow Rate 03/25/23 16:05 03/25/23 16:15 03/25/23 16:30 Temperature Pulse Rate 107 H 108 H 104 H Respiratory Rate 15 22 H 14 Blood Pressure 97/63 L 109/66 109/64 Pulse Oximetry 97 97 96 Oxygen Delivery Room Air Room Air Room Air Oxygen Flow Rate 03/25/23 16:45 03/25/23 17:15 03/25/23 18:00 Temperature 97.4 F L Pulse Rate 106 H 104 H 110 H Respiratory Rate 16 14 Blood Pressure 114/66 113/64 Pulse Oximetry 95 94 Oxygen Delivery Room Air Room Air Oxygen Flow Rate 03/25/23 17:45 03/25/23 18:45 03/25/23 20:00 Temperature 97.5 F L 97.5 F L Pulse Rate 114 H 117 H 117 H Respiratory Rate 16 16 16 Blood Pressure 122/70 123/71 Pulse Oximetry 93 94 94 Oxygen Delivery Room Air Oxygen Flow Rate 03/25/23 20:04 03/25/23 20:46 03/25/23 20:47 Temperature 97.4 F L Pulse Rate 110 H 97 Respiratory Rate 20 22 H Blood Pressure 110/58 L Pulse Oximetry 95 95 Oxygen Delivery Room Air Oxygen Flow Rate 03/25/23 20:00 03/25/23 20:57 03/25/23 21:11 Temperature 97.4 F L Pulse Rate 110 H 106 H 108 H Respiratory Rate 20 Blood Pressure 100/48 L Pulse Oximetry 96 Oxyg
[2023-03-26 15:32] LABS: Partial Thromboplastin Time 51.9 SECONDS (22.3-36.8)
[2023-03-26] MEDS: HEPARIN SODIUM 5,000 UNITS/ML VIAL 4000 UNITS IV PUSH (15:43)
[2023-03-26] MEDS: LORATADINE 10 MG TABLET PO (21:23)
[2023-03-26 23:07] LABS: Partial Thromboplastin Time 172.5 SECONDS (22.3-36.8)
--- NOTE | 2023-03-26 23:34 | PC.NURSE ---
ptt reported to this nurse 192.6. previous ptt much lower. lab asked to redraw, agreed. after previous ptt, nurse administered bolus and increased rate according to protocol. Heparin held for 1 hour at 2225 based on intitial ptt and redrawn by lab to rule out errors. Restarted heparin at 2335 according to protocol at 2 ml/hr less than previous rate.
[2023-03-27] VITALS (20 sets, daily range): BP systolic 92–128; BP diastolic 52–85; PULSE 76–141; RESP 18–22; TEMP 36.2–36.5; O2SAT 94–99
[2023-03-27] MEDS: HEPARIN SOD/D5W 100 UNITS/ML 25,000 UNITS/250 ML BAG 10 UNITS IV CONT (00:56)
[2023-03-27] MEDS: ALBUTEROL SULFATE NEB 2.5 MG/3 ML INH INHALATION ×2 (02:30→08:30)
[2023-03-27] MEDS: IPRATROPIUM BR 0.02% INH SOLN 0.5 MG/2.5 ML VIAL INHALATION ×3 (02:30→13:23)
[2023-03-27 04:48] LABS: Partial Thromboplastin Time 126.7 SECONDS (22.3-36.8)
--- NOTE | 2023-03-27 05:57 | ECG_ITS ---
Measurements Intervals [place] Rate: 116 P: [place]: 0 QRS: -19 QRSD: 77 T: -5 QT: 326 QTc: 453 Interpretive Statements ATRIAL FIBRILLATION WITH RAPID VENTRICULAR RESPONSE LOW QRS VOLTAGE IN PRECORDIAL LEADS [QRS DEFLECTION < 1.0 mV IN CHEST LEADS] INFERIOR MYOCARDIAL INFARCTION [40+ ms Q WAVE AND/OR ST/T ABNORMALITY IN II/aVF], PROBABLY OLD ABNORMAL WAS SHE COMPARED TO ECG 03/24/2023 15:27:56 ATRIAL FIBRILLATION NOW PRESENT Electronically Signed On 03-27-2023 9:38:02 CDT by Gildardo Adler M.D.
[2023-03-27] MEDS: METOPROLOL TARTRATE INJ 5 MG/5 ML VIAL IV PUSH (06:02)
[2023-03-27] MEDS: NITROGLYCERIN SL 0.4 MG TABLET SUBLINGUAL ×3 (06:03→06:10)
--- NOTE | 2023-03-27 06:36 | PC.NURSE ---
Patient got up to bedside commode, heart rate went up to 150, patient back to bed, heart rate remained up, patient stated jaw was uncomfortable on both sides. Received new orders from Dr. Ferreira. Lopressor 5mg IVP administered and nitrox3. Jaw discomfort almost gone. EKG reported to Dr. Ferreira who stated call cardiology. EKG/events reported to Dr. Bhakta. New orders received.
[2023-03-27 06:37] LABS: Hematocrit 29.6 % (37.0-47.0); Hemoglobin 9.4 g/dL (12.0-15.0); Mean Corpuscular HGB Conc 31.8 g/dl (32-36); Mean Corpuscular Volume 88.1 fl (80-100); Mean Platelet Volume 9.5 fl (7.4-10.4); Platelet Count Result 284 k/mm3 (150-375); Red Blood Count 3.36 M/mm3 (4.2-5.4); Red Cell Distribution Width 13.8 % (11.5-14.5); White Blood Count 11.5 K/mm3 (4.5-10.0)
[2023-03-27] MEDS: AMIODARONE 150 MG/D5W 100 ML 150 MG/100 ML BAG 600 MG IV CONT (06:44)
[2023-03-27 06:56] LABS: Anion Gap 6 mmol/L (8-16); Blood Urea Nitrogen 30 mg/dL (7-17); Calcium 8.2 mg/dL (8.4-10.2); Carbon Dioxide 28 mmol/L (22-30); Chloride 100 mmol/L (98-107); Estimated CRCL calculation 30 ml/min; Estimated Glomerular Filt Rate 36; Glucose 112 mg/dL (65-110); Sodium 134 mmol/L (137-145)
[2023-03-27 06:57] LABS: Magnesium 1.9 mg/dL (1.6-2.3); Phosphorus 3.8 mg/dL (2.5-4.5)
[2023-03-27] MEDS: AMIODARONE 360 MG/D5W 200 ML 360 MG/200 ML BAG 33.33 MG IV CONT (07:00)
[2023-03-27 07:12] LABS: Troponin I 0.853 ng/mL (0.000-0.034)
--- NOTE | 2023-03-27 07:47 | ECG_ITS ---
Measurements Intervals [place] Rate: 80 P: 45 [place]: 182 QRS: -25 QRSD: 78 T: 26 QT: 355 QTc: 410 Interpretive Statements SINUS RHYTHM INFERIOR MYOCARDIAL INFARCTION [40+ ms Q WAVE AND/OR ST/T ABNORMALITY IN II/aVF], PROBABLY OLD ABNORMAL ECG Electronically Signed On 03-27-2023 9:38:17 CDT by Gildardo Adler M.D.
--- NOTE | 2023-03-27 07:52 | PM.PNCARD ---
Progress Note: A&P Assessment and Plan (1) Elevated troponin: Code(s): R77.8 - Other specified abnormalities of plasma proteins Status: Acute Assessment and Plan: At [facility] on their scale, Troponin over 4,000, then over 3,000, then over 2,000, trending down but elevated. Here is peaked at 2.9. (2) Chronic obstructive pulmonary disease: Code(s): J44.9 - Chronic obstructive pulmonary disease, unspecified Status: Acute Assessment and Plan: Inhalers as per hospitalist. (3) Hypertension: Code(s): I10 - Essential (primary) hypertension Status: Acute Assessment and Plan: Lisinopril has been on hold due to low normal BP. Monitor. (4) Non-ST elevation myocardial infarction (NSTEMI): Code(s): I21.4 - Non-ST elevation (NSTEMI) myocardial infarction Status: Acute Assessment and Plan: 03/25/23 Echo: EF 20-25%, mod LVE, basal LV segments have normal contractility while mid to apical segments are severely hypokinetic, diastolic dysfunction (E/e' 26), mild MR/TR. Started Zetia 10 mg daily. She states she got sick from Atorvastatin and it was discontinued in past. 03/25/23 [facility] by Dr. Holguin: 95-99% prox LAD and 1st Diag stenosis that is heavily calcified, will require shockwave/laser atherectomy which we do not have at [place]. On heparin drip, aspirin 81 mg daily and Metoprolol 12.5 mg BID. Spoke to Dr. Dallas who is accepting patient to be transferred to [facility] to perform procedure. Await transfer to [facility] under hospitalist once bed becomes available. (5) PAF (paroxysmal atrial fibrillation): Code(s): I48.0 - Paroxysmal atrial fibrillation Status: Acute Assessment and Plan: New onset early this morning on 03/27/23. Started on Amiodarone drip and cardioverted back to sinus rhythm. Continue drip for 24 hours then change to PO dosing. On heparin drip for NSTEMI. (6) Systolic dysfunction: Code(s): I51.9 - Heart disease, unspecified Status: Acute Assessment and Plan: Acute due to ACS. On Metoprolol and start Jardiance. Due to relative hypotension, has not started on Entresto. Due to worsening kidney function from Cr 1.0 to Cr 1.4, will d/c Lasix as she appears euvolemic, and will hold off on starting Spironolactone. Subjective Date/time seen: 03/27/23 07:52 Interval history: She went into rapid atrial fib early this morning and had jaw pain with it. Now she is back in sinus rhythm on Amiodarone drip and no longer having jaw pain. No chest pain or sob. Exam Const: General: cooperative, healthy appearing and comfortable Orientation/consciousness: oriented to person, oriented to place and oriented to time Resp: Auscultation: clear to auscultation bilaterally, no crackles, no rales, no rhonchi and no wheezes Cardio: Rate: regular rate Rhythm: regular rhythm Heart sounds: no murmurs Peripheral pulses: dorsalis pedis present Neuro: General: oriented to person, oriented to place and oriented to time Extrem: Right lower extremity: no edema Left lower extremity: no edema Objective Data Vital Signs Vital Signs: Vital Signs - 24 hr 03/26/23 08:00 03/26/23 08:35 03/26/23 08:36 Temperature 97.6 F Pulse Rate 100 94 Respiratory Rate 18 18 Blood Pressure 137/96 H Pulse Oximetry 97 95 Oxygen Delivery Room Air Oxygen Flow Rate 03/26/23 08:45 03/26/23 08:45 03/26/23 09:00 Temperature Pulse Rate 93 102 H Respiratory Rate 18 Blood Pressure Pulse Oximetry 95 Oxygen Delivery Nasal Cannula Oxygen Flow Rate 1 03/26/23 08:00 03/26/23 12:00 03/26/23 12:00 Temperature 98.1 F Pulse Rate 104 H 96 Respiratory Rate 18 Blood Pressure 120/78 Pulse Oximetry 96 98 Oxygen Delivery Nasal Cannula Oxygen Flow Rate 1 03/26/23 14:16 03/26/23 14:30 03/26/23 14:00 Temperature Pulse Rate 91 93 98 Respiratory Rate 18 18 Blood Pressure Pulse Oximetry Oxy
[2023-03-27] MEDS: FLUTICASONE/SALMETEROL 115-21 MCG INHALER 1 PUFF 2 PUFF INHALATION (08:30)
[2023-03-27] MEDS: predniSONE 20 MG TABLET 40 MG PO (08:46)
[2023-03-27] MEDS: EZETIMIBE 10 MG TABLET PO (08:47)
[2023-03-27] MEDS: ASPIRIN 81 MG ENTERIC TABLET PO (08:47)
[2023-03-27] MEDS: METOPROLOL TARTRATE 12.5 MG TABLET PO (08:47)
--- NOTE | 2023-03-27 09:05 | PM.IMPN ---
Progress Note: A&P Assessment and Plan (1) Non-ST elevation myocardial infarction (NSTEMI): Code(s): I21.4 - Non-ST elevation (NSTEMI) myocardial infarction Status: Acute Assessment and Plan: Patient initially presented to the emergency room at an outside hospital with left leg weakness. Workup revealed elevated troponin. In retrospect, she did state that she had some mild chest discomfort prior to admission. She was transferred to our facility. Troponin peaked here at 2.95. EKG showed nonspecific T-wave abnormalities. Echocardiogram showed EF of 20-25% with basal LV segment having normal contractility, mid to apical segments severely hypokinetic and abnormal diastolic function. Cardiology was consulted. Left heart catheterization showing the proximal LAD with a high-grade 95-99% stenosis which also involves 95-99% stenosis of the origin of the moderate sized 1st diagonal branch. There was a large area of left ventricular akinesis as described in the echocardiogram felt related to the high-grade stenosis. Patient is on aspirin, metoprolol and Zetia. She has and interaction with statin therapy not defined. She remains on heparin drip. Continue heparin drip, appreciate cardiology consultation Transfer pending to [facility] per cardiology request (2) PAF (paroxysmal atrial fibrillation): Code(s): I48.0 - Paroxysmal atrial fibrillation Status: Acute Assessment and Plan: Patient developed atrial fibrillation with rapid ventricular response. She was given 1 dose metoprolol and ultimately started on amiodarone drip. She has converted to normal sinus rhythm. She is on heparin which will continue. Continue to monitor on telemetry. Check TSH. (3) COPD exacerbation: Code(s): J44.1 - Chronic obstructive pulmonary disease with (acute) exacerbation Status: Acute Assessment and Plan: It was suspected patient had a COPD exacerbation. She was given Solumedrol x 1, then prednisone 40 mg daily initiated 6/5 for 5 days total of steroids planned. On Albuterol which will change to Xopenex. Wean O2 as toelrated. Check CXR. (4) Systolic dysfunction: Code(s): I51.9 - Heart disease, unspecified Status: Acute Assessment and Plan: As above. EF 20-25% related to underlying ischemic disease. Treatment as above. Will need ACEI/ARB or Entresto when able. Empagliflozin started. (5) Hypertension: Code(s): I10 - Essential (primary) hypertension Status: Acute Assessment and Plan: Patient's blood pressure was reviewed on 03/27 Blood pressure remains well controlled. Will continue current medications. (6) Left leg weakness: Code(s): R29.898 - Other symptoms and signs involving the musculoskeletal system Status: Acute Assessment and Plan: Patient was unable to lift her left leg prompting her to call EMS as she was concerned for stroke. EMS had to assist her to the cot and they had to lift up her left leg as she was unable to do so. By the time she got to the emergency department her symptoms had resolved and her NIH stroke scale was 0. Brain CT done at that time showed no acute findings.?Carotid US showing no hemodynamically significant stenosis of the bilateral internal carotid arteries. No recurrence of symptoms. Continue above treatment. (7) Right upper lobe pulmonary nodule: Code(s): R91.1 - Solitary pulmonary nodule Status: Acute Assessment and Plan: CT of the chest done at the outside hospital showed no evidence of pulmonary embolism. A 7 mm right upper lobe nodule was noted. Follow up outpatient. (8) Renal insufficiency: Code(s): N28.9 - Disorder of kidney and ureter, unspecified Status: Acute Assessment and Plan: Probably MAURY. Cr 1.26 at the outside hospital and was 1.0 here on admission. Cr has climbed to 1.4 possibly related to contrast (CTA chest prior to admission and C here). [facility]
[2023-03-27] MEDS: PANTOPRAZOLE 40 MG TABLET PO (09:30)
[2023-03-27] MEDS: EMPAGLIFLOZIN 10 MG TABLET PO (09:30)
[2023-03-27 11:09] LABS: Appearance Urine Clear (Clear); Bacteria Urine None Seen /hpf; Bilirubin Urine Negative (Negative); Blood Urine 1+ (Negative); Color Urine Yellow (Yellow); Glucose Urine UA Negative (Negative); Ketones Urine Negative (Negative); Leukocyte Esterase Ur Negative LEU/UL (NEGATIVE); Nitrate Urine Negative (Negative); Non Pathogenic Casts 0-2; Protein Urine Negative (Negative); RBC Urine 0-2 /hpf (0-2); Squamous Epithelial Cell Urine None seen /hpf (Few); Urobilinogen Urine 0.2 mg/dL (<2.0); WBC Urine 0-5 /hpf (0-3)
[2023-03-27 11:10] LABS: Partial Thromboplastin Time 88.5 SECONDS (22.3-36.8)
[2023-03-27 11:11] LABS: Add Urine Microscopic? YES; Creatinine Urine 49.5 mg/dL
[2023-03-27 11:26] LABS: Sodium Urine Random 66 meq/L
[2023-03-27] MEDS: HEPARIN SOD/D5W 100 UNITS/ML 25,000 UNITS/250 ML BAG 9 UNITS IV CONT (11:33)
[2023-03-27 12:12] LABS: Eosinophil Urine None Seen % (None Seen); Urine Eos QC 2nd Tech Confirmed
[2023-03-27] MEDS: AMIODARONE 360 MG/D5W 200 ML 360 MG/200 ML BAG 16.67 MG IV CONT (12:52)
[2023-03-27] MEDS: LEVALBUTEROL NEB 1.25 MG/3 ML 0.63 MG INHALATION (13:22)
--- NOTE | 2023-03-27 13:30 | PC.NURSE ---
[facility] accsess line called with bed for pt to go to [facility] to room 922 Bed 1 report called to Fuad DAVIS
[2023-03-27] MEDS: LORazepam (*CRX) 0.5 MG TABLET PO (14:06)
--- NOTE | 2023-03-27 16:37 | PM.TDS ---
Transfer Discharge Sum: Prov Provider Date of admission: 03/24/23 17:01 Primary care physician: UNKNOWN,DOCTOR Admitting clinician: Demetrio Payton MD Consults: 03/24/23 Consult to Physician Routine Comment: Consulting Provider: Isael Bhakta call center support representative/MD group to consult: Dr. Bhakta Reason for consultation: NSTEMI Has provider been notified: Yes DS: Admitting Diagnosis Discharge Date 03/27/23 Admitting Diagnosis Leg weakness DS: Discharge Diagnosis Discharge Diagnosis (1) Non-ST elevation myocardial infarction (NSTEMI): Code(s): I21.4 - Non-ST elevation (NSTEMI) myocardial infarction Status: Acute (2) PAF (paroxysmal atrial fibrillation): Code(s): I48.0 - Paroxysmal atrial fibrillation Status: Acute (3) COPD exacerbation: Code(s): J44.1 - Chronic obstructive pulmonary disease with (acute) exacerbation Status: Acute (4) Systolic dysfunction: Code(s): I51.9 - Heart disease, unspecified Status: Acute (5) Hypertension: Code(s): I10 - Essential (primary) hypertension Status: Acute (6) Left leg weakness: Code(s): R29.898 - Other symptoms and signs involving the musculoskeletal system Status: Acute (7) Right upper lobe pulmonary nodule: Code(s): R91.1 - Solitary pulmonary nodule Status: Acute (8) Renal insufficiency: Code(s): N28.9 - Disorder of kidney and ureter, unspecified Status: Acute (9) Anemia: Code(s): D64.9 - Anemia, unspecified Status: Acute Transfer Discharge Sum: Med Medications Active and Home Medications: Home Medications acetaminophen 500 mg tablet 500 - 1,000 mg PO Q6H PRN Pain 03/24/23 [History Confirmed 03/24/23] albuterol sulfate 2.5 mg/3 mL (0.083 %) solution for nebulization 2.5 mg inhalation Q6H PRN Wheezing 03/24/23 [History Confirmed 03/24/23] chlorthalidone 25 mg tablet 25 mg PO HS 03/24/23 [History Confirmed 03/24/23] fluticasone 250 mcg-salmeterol 50 mcg/dose blistr powdr for inhalation (Wix[employer] Inhub) 1 inh inhalation Q12H 03/24/23 [History Confirmed 03/24/23] lisinopril 40 mg tablet 40 mg PO HS 03/24/23 [History Confirmed 03/24/23] loratadine 10 mg tablet 10 mg PO HS 03/24/23 [History Confirmed 03/24/23] omeprazole 40 mg capsule,delayed release 40 mg PO HS 03/24/23 [History Confirmed 03/24/23] Transfer Discharge Sum: Hosp Hospital Course Hospital course: 82yo female with history of hypertension, COPD, and GERD is presenting with lower extremity weakness and currently being treated for an NSTEMI. Please see H&P for details. Patient initially presented to the emergency room at an outside hospital with left leg weakness.? Workup revealed elevated troponin.? In retrospect, she did state that she had some mild chest discomfort prior to admission.? She was transferred to our facility.? Troponin peaked here at 2.95.? EKG showed nonspecific T-wave abnormalities.? Echocardiogram showed EF of 20-25% with basal LV segment having normal contractility, mid to apical segments severely hypokinetic and abnormal diastolic function.? Cardiology was consulted.? Left heart catheterization showing the proximal LAD with a high-grade 95-99% stenosis which also involves 95-99% stenosis of the origin of the moderate sized 1st diagonal branch.? There was a large area of left ventricular akinesis as described in the echocardiogram felt related to the high-grade stenosis.? Patient remained on aspirin, metoprolol and Zetia.? She has and interaction with statin therapy not defined.? She remained on heparin drip. Patient developed atrial fibrillation with rapid ventricular response.? She was given 1 dose metoprolol and ultimately started on amiodarone drip.? She converted to normal sinus rhythm.? She is on heparin which was continued.? TSH normal. It was suspected patient had a COPD exacerbation.? She was given Solumedrol x 1, then prednisone 40 mg daily initiated 6/5 for 5 days tota
== END 2023-03-27 14:26 | disposition short-term general hospital (02) | DRG 281 ==
PROVIDERS: Internal Medicine; Internal Medicine Cardiovascular Disease; Physician Assistant; Specialist; Admitting Provider Chiropractor; Visit Provider Internal Medicine
PROC: 4A023N7 Measurement of Cardiac Sampling and Pressure, Left Heart, Percutaneous Approach (ICD-10-PCS; CPT 93452; principal; 2023-03-25 12:30)
DX: I21.4 Non-ST elevation (NSTEMI) myocardial infarction (principal); J44.1 Chronic obstructive pulmonary disease with (acute) exacerbation; N17.9 Acute kidney failure, unspecified; I48.0 Paroxysmal atrial fibrillation; I51.9 Heart disease, unspecified; R91.1 Solitary pulmonary nodule; I10 Essential (primary) hypertension; D64.9 Anemia, unspecified; I95.9 Hypotension, unspecified; I51.89 Other ill-defined heart diseases; Z82.49 Family history of ischemic heart disease and other diseases of the circulatory system; Z82.3 Family history of stroke; Z87.891 Personal history of nicotine dependence; Z79.899 Other long term (current) drug therapy; Z88.5 Allergy status to narcotic agent
CPT/HCPCS: 36415; 71045; 76775; 80048; 80053; 80061; 81001; 82570; 83735; 84100; 84300; 84443; 84484; 85025; 85027; 85610; 85730; 85999; 93005; 93458; 93880; 94640; 96375; A9270; C1887; C1894; C8929; G0378; J0282; J1644; J2250; J2930; J3010; J7030; J7040; J7120; J7512; Q9957